=== PATIENT | male | born 1945 | race Caucasian/White ===

== ENCOUNTER 2018-09-17 15:35 | Inpatient (IN) | payer OTHER ==
[~2018-09-17] VITALS: Ht 170.2 cm; Wt 93.3 kg
--- NOTE | ~2018-09-17 | D ---
[facility] [place] [address] DISCHARGE SUMMARY Name: RACHEL BARR Room #: 202-P [facility] M.R.#: [id number] Admission: 09/18/18 Attend Phys: Luis Fernando Mccray MD, Discharge: Date of : 49 Report #: [id number] THIS REPORT FOR: //name// CC: Santiago Gould Shazia [facility] COURSE: The patient is a 73-year-old male. He had presented to my office having some word finding issues and some questionable TIA type symptoms. He was admitted here to [facility] for evaluation, Neurology consult, CT and MRI. There were no new findings. Neurology did note that he had held the Xarelto 2 days prior for an epidural, but this epidural did not occur. But, there were no consistent findings on MRI or CT of a bleed or an embolic event. The symptomatology had improved. He is nonfocal. He is up and ambulating and feeling well. He has had stable coronary disease. He will be discharged on Cymbalta, Neurontin, Vascepa, levothyroxine, metformin 500 b.i.d., olmesartan HCT 40/25 and I will initiate that back at half dose at 20/12.5, Xarelto 20 mg. Alcohol cessation is strongly recommended here. He will be scheduled to follow up in my office in 3 months. He was scheduled for stress test, we will obtain that prior to that setting. He has had no recurrent chest pain currently. His laboratory work, creatinine was 1.4, potassium was 3.6. His GFR was 50. Liver function tests were normal. His lipids were favorable with an LDL of 51. CRP was less than 2. Alcohol level was 176 on admission. Drug screen was negative. H and H was 14 and 41.. Sed rate was 20. Hemoglobin A1c was 7.0. Folate was normal. B12 was normal. DISCHARGE DIAGNOSES: 1. Transient ischemic attack, resolved. No embolic findings. 2. Paroxysmal atrial fibrillation, on anticoagulation. 3. History of ethyl alcohol abuse, had been abstaining. 4. Hypertension. 5. Hypercholesterolemia. Followup will be 3 months. Stress echocardiographic exam in my office. By: [id number] Luis Fernando Mccray MD, FACC /nt
[2018-09-17 17:47] VITALS: BP 103/58
[2018-09-17 18:22] LABS: HEMATOCRIT 41.3 % (42.0-52.0); HEMOGLOBIN 14.4 gm/dL (14.0-18.0); MCH 31.4 pg (26.0-34.0); MCHC 34.9 g/dL (28.0-37.0); RBC 4.59 mil/uL (4.50-6.00); RDW 13.9 % (10.5-14.5); WBC 7.7 thou/uL (4.0-11.0)
[2018-09-17 18:39] LABS: ALBUMIN 3.6 g/dL (3.4-5.0); ANION GAP 11 mmol/L (7-16); BUN 28 mg/dL (7-18); CALCIUM 8.6 mg/dL (8.5-10.1); CHLORIDE 104 mmol/L (98-107); CO2 24 mmol/L (21-32); CREATININE 1.4 mg/dL (0.7-1.3); GLUCOSE 138 mg/dL (74-106); POTASSIUM 3.9 mmol/L (3.5-5.1); SGOT 32 U/L (15-37); SGPT 31 U/L (30-65); SODIUM 139 mmol/L (136-145); TOTAL BILIRUBIN 0.4 mg/dL (<0.1-1.0); TOTAL PROTEIN 6.9 g/dL (6.4-8.2)
[2018-09-17 19:05] VITALS: BP 120/68
[2018-09-17 19:08] LABS: AMP/METHAMP Negative (Negative); BARBITURATES Negative (Negative); BENZODIAZEPINES Negative (Negative); COCAINE Negative (Negative); METHADONE Negative (Negative); OPIATES Negative (Negative); PCP Negative (Negative)
[2018-09-17] MEDS ORDERED: CYMBALTA60 MG PO (19:12)
[2018-09-17] MEDS ORDERED: NEURONTIN 300300 M1 PO (19:12)
[2018-09-17] MEDS ORDERED: VASCEPA1 GM PO (19:13)
[2018-09-17] MEDS ORDERED: SYNTHROID137 MC1 PO (19:14)
[2018-09-17] MEDS ORDERED: UNICOMPLEX M TA1 TA1 PO (19:15)
[2018-09-17] MEDS ORDERED: METFORMIN HCL500 MG PO (19:15)
[2018-09-17] MEDS ORDERED: BENICAR HCT 401 EAC1 PO (19:16)
[2018-09-17] MEDS ORDERED: XARELTO20 MG PO (19:28)
[2018-09-17] MEDS ORDERED: CRESTOR40 MG PO (20:07)
[2018-09-17] MEDS ORDERED: MELATONIN5 M1 PO (20:10)
[2018-09-18 05:54] VITALS: BP 102/62
[2018-09-18 07:21] VITALS: BP 110/69
[2018-09-18 10:00] LABS: CHOLESTEROL 116 mg/dL (<200); HDL CHOLESTEROL 38 mg/dL (>40); LDL CHOLESTEROL 51 mg/dL (<100); TC:HDL 3.1 Ratio (Not establshd); TRIGLYCERIDE 139 mg/dL (<150); VLDL 28 mg/dL (<40)
[2018-09-18 10:50] LABS: FOLIC ACID 19.2 ng/mL (8.6-58.9)
[2018-09-18 19:23] VITALS: BP 117/71
[2018-09-19 05:40] VITALS: BP 119/75
[2018-09-19 07:10] VITALS: BP 114/74
[2018-09-19 08:40] VITALS: BP 114/74
[2018-09-19 10:03] VITALS: BP 114/74
== END 2018-09-19 10:50 | disposition home or self-care (01) | DRG 69 ==
LOC: 2N 15:35
PROVIDERS: Nurse Practitioner Adult Health; Psychiatry & Neurology Neurology
DX: G45.9 Transient cerebral ischemic attack, unspecified (principal); I48.0 Paroxysmal atrial fibrillation; I10 Essential (primary) hypertension; E78.00 Pure hypercholesterolemia, unspecified; E11.9 Type 2 diabetes mellitus without complications; G47.33 Obstructive sleep apnea (adult) (pediatric); M19.90 Unspecified osteoarthritis, unspecified site; F10.21 Alcohol dependence, in remission; Z98.1 Arthrodesis status; Z79.84 Long term (current) use of oral hypoglycemic drugs; Z79.899 Other long term (current) drug therapy
CPT/HCPCS: 10081

== ENCOUNTER → 2020-07-22 | Outpatient (CLI) | payer OTHER ==
[~2020-07-22] MED LIST: BENICAR HCT 401 EAC1 PO; CRESTOR40 MG PO; CYMBALTA60 MG PO; MELATONIN5 M1 PO; METFORMIN HCL500 MG PO; NEURONTIN 300300 M1 PO; SYNTHROID137 MC1 PO; UNICOMPLEX M TA1 TA1 PO; VASCEPA1 GM PO; XARELTO20 MG PO
== END ==
LOC: SJCVCIMAG 07:40
PROVIDERS: ATTEND Internal Medicine Cardiovascular Disease
DX: E78.5 Hyperlipidemia, unspecified (principal); I48.0 Paroxysmal atrial fibrillation; I10 Essential (primary) hypertension; E11.9 Type 2 diabetes mellitus without complications; Z79.899 Other long term (current) drug therapy; Z86.73 Personal history of transient ischemic attack (TIA), and cerebral infarction without residual deficits; Z87.891 Personal history of nicotine dependence

== ENCOUNTER → 2021-04-01 | Outpatient (CLI) | payer OTHER | LOC: SJCVC 11:11 | PROVIDERS: ATTEND Internal Medicine Cardiovascular Disease | DX: R94.31 Abnormal electrocardiogram [ECG] [EKG] (principal); I48.0 Paroxysmal atrial fibrillation; I10 Essential (primary) hypertension; E78.00 Pure hypercholesterolemia, unspecified; E11.9 Type 2 diabetes mellitus without complications; I87.2 Venous insufficiency (chronic) (peripheral); D68.59 Other primary thrombophilia; E78.1 Pure hyperglyceridemia; Z86.73 Personal history of transient ischemic attack (TIA), and cerebral infarction without residual deficits; E66.9 Obesity, unspecified; Z87.891 Personal history of nicotine dependence; Z79.84 Long term (current) use of oral hypoglycemic drugs; Z79.899 Other long term (current) drug therapy ==

== ENCOUNTER → 2021-10-11 | Outpatient (CLI) | payer OTHER | LOC: SJCVCIMAG 10:29 | PROVIDERS: ATTEND Internal Medicine Cardiovascular Disease | DX: I48.91 Unspecified atrial fibrillation (principal) ==